=== PATIENT | male | born 1985 | race African-American/Black ===

== ENCOUNTER 2024-12-16 17:33 | Emergency (ER) | payer SELFPAY ==
[2024-12-16 17:35] VITALS: BP 157/76; PULSE 96; RESP 18; TEMP 36.7; O2SAT 96; BMI 24.3
[2024-12-16 17:43] VITALS: PULSE 130; RESP 18; O2SAT 98; BMI 23.0
--- NOTE | 2024-12-16 17:50 | EKG_ITS ---
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
--- NOTE | 2024-12-16 17:54 | PC.NURSE ---
ERIK FROM [employer], [employer]C STAFF AND POLICE AT BEDSIDE. PT STATES THAT SOMEONE SENT HIM A LATE BDAY GIFT, REPORTS HE INHALED ABOUT 1GM OF METH. HAVING CHEST PAIN THAT BEGAN ABOUT 6 HRS AGO. ARRIVED W/AN 18 TO THE RIGHT AC FROM EMS. PT ARRIVES HYPERTENSIVE. PT GIVEN ASPIRIN, NIRTO SL AND NITROPASTE FROM EMS.
--- NOTE | 2024-12-16 18:13 | PD.EDCHEST ---
ED Chest Pain RME/HPI General Chief Complaint: Chest Pain Stated Complaint: CHEST PAIN Time Seen by Provider: 12/16/24 18:14 Arrival date/time: 12/16/24 17:33 RME / HPI RME / HPI narrative: Dr. Carcamo?s Main ED Evaluation: 39yo male accompanied by [employer] brought in from [facility] presents to the ED for a chief complaint of possible methamphetamine ingestion x 1430. Per law enforcement, patient was doing laundry when they noticed he was putting a bag with a crystal-like substance into his mouth. Patient told law enforcement he ingested 0.5g of methamphetamine, so he was brought in for evaluation. He denies any chest pain, shortness of breath, dizziness or any other associated symptoms. Law enforcement note the patient arrived at [facility] today. Related Data Allergies Allergy/AdvReac Type Severity Reaction Status Date / Time No Known Allergies Allergy Verified 12/16/24 19:10 Review of Systems Review of Systems Systems Reviewed: All systems reviewed, normal except as documented Past Medical History Social History SMOKING STATUS: Current every day smoker ED Exam Narrative Physical exam: GENERAL APPEARANCE: alert and oriented x 4, well-developed, well-nourished, no acute distress VITALS: All vitals were reviewed and the pulse ox is 96% on room air, which is normal according to my interpretation. HEENT: Normocephalic, atraumatic; pupils equal, round, reactive to light; EOMI; mucous membranes pink, moist; oropharynx clear NECK: Supple LUNGS: CTABL; no wheezes, no rales, no rhonchi HEART: Regular rate, regular rhythm; normal S1, S2; no murmurs ABDOMEN: non distended; normal BS; soft, no tenderness, no guarding, no rebound; no masses, no organomegaly, no hernia BACK: no CVA tenderness EXTREMITIES: atraumatic; no edema NEUROLOGIC: awake; alert and oriented x4; cranial nerves II-XII grossly intact; no focal sensory or motor deficits PSYCHIATRIC: appropriate mood and affect SKIN: warm, dry, normal color; no rashes Course Quality Measures none Orders Category Date Time Status EKG (ED ONLY) *Do not use* NOW Care 12/16/24 17:50 Completed EKG (ED Only) Stat Exams 12/16/24 17:50 Ordered hydrALAZINE INJ [Apresoline Inj] Med 12/16/24 18:35 Discontinued 10 mg IM X1 ONE hydrALAZINE INJ [Apresoline Inj] Med 12/16/24 19:10 Discontinued 10 mg IV X1 ONE Vital Signs Vital signs: Vital Signs Temperature 98.1 F 12/16/24 17:35 Pulse Rate 96 12/16/24 17:35 Respiratory Rate 18 12/16/24 17:35 Blood Pressure 157/76 H 12/16/24 17:35 Pulse Oximetry (%) 96 12/16/24 17:35 Oxygen Delivery Method Nasal Cannula 12/16/24 17:35 Oxygen Flow Rate 2 12/16/24 17:35 Chest Pain MDM Narrative MDM Narrative:: Scribe Attestation: 12/16/24 - Mitul, Kiana Colón am scribing for and in the presence of Dr. Carcamo. Patient data External records reviewed:: [facility] previous records (Per chart review, patient has no previous ED visits or admissions to this facility.) Clinical information provided by:: patient and law enforcement Social determinants that could affect healthcare access:: housing ([facility] resident) Patient has the following chronic illnesses:: none How is presenting disease/condition affected by chronic disease/condition?: no chronic disease Evaluation data The following diagnostics were reviewed and interpreted by me:: lab results and EKG tracing(s) Lab and/or radiology exams considered but not ordered:: none Interpretation Summary: EKG done at 1756, NSR, rate of 91, normal axis, no ectopy, nonspecific ST abnormalities, no STEMI, according to my interpretation. Medications / Prescriptions Medications or Prescriptions considered but not ordered:: none Medication administrations:: Medication Administration History Discontinued Medications Hydralazine HCl (Hydralazine Inj 20 Mg/Ml Vial) 10 mg IM X1 ONE Stop: 12/16/24 18:36 Last Admin: 12/16/24 19:11 Dose: Not Given Documented By: TM Non-Admin Reason: Cancelled by Provider Hydralazine HCl (Hydralazine Inj 20 Mg/Ml Vial) 10 mg IV X1 ONE Stop: 12/16/24 19:11 Last Admin: 12/16/24 19:18 Dose: 10 mg Documented By: CB see above Consultations Consultation(s) initiated? (list below): No Diagnosis Chest Pain Differential Diagnosis: other (methamphetamine ingestion, cocaine ingestion, other substance ingestion) Most likely diagnosis given after review of the tests above:: see below Admission Indicated Admission indicated?: not indicated Explain why admission is indicated or not indicated:: No criteria for admission. Patient does not have any medical complaints. Admission Request Was there a request for admission?: No Disposition Plan Disposition Plan: Discharge Discharge Attestation Discharge Attestation: The patient and all family members were given an opportunity to ask questions and understood the discharge instructions. Discharge instructions specifically effects, indications for sooner follow up or return to the emergency department, and the expected course of current diagnosis. Patient condition: Stable Discharge Plan Plan Patient Disposition: Skilled Nursing/Court/Law Disposition Comment: Stable for discharge into custody Patient condition on transfer: Stable Prescriptions/Referrals Referrals: [facility] [Outside] - In 1 week Problem List Clinical Impression: Hypertension, Ingestion of substance Patient/Caregiver Discharge Instructions Discharge Activity: activity as tolerated Education Materials: ED High Blood Pressure ... Additional Instructions: Please return to the emergency department if you have any worsening or any further medical problems. Otherwise you should follow-up with your primary care doctor within the next several days. Apparently Subhash ingested some sort of substance. However it has been 4 hours, he has no symptoms other than some hypertension and is in no distress. He is medically cleared for incarceration Print Language: Yemeni Stand Alone Forms: Gertrude Award Info., Patient Portal Info Letter
--- NOTE | 2024-12-16 19:08 | PC.NURSE ---
PROVIDER GAVE VERBAL TO CHANGE HYDRALAZINE TO IV INSTEAD OF IM
[2024-12-16 19:16] VITALS: BP 202/122; PULSE 96; RESP 37; O2SAT 98
[2024-12-16 19:18] VITALS: BP 202/122; PULSE 96
[2024-12-16] MEDS: hydrALAZINE INJ 20 MG/ML VIAL 10 MG IV (19:18)
[2024-12-16 19:53] VITALS: BP 182/99; PULSE 100; RESP 18; TEMP 36.7; O2SAT 98
== END 2024-12-16 19:54 ==
PROVIDERS: Emergency Provider Emergency Medicine
DX: F15.90 Other stimulant use, unspecified, uncomplicated (principal); I10 Essential (primary) hypertension; R07.9 Chest pain, unspecified; R94.31 Abnormal electrocardiogram [ECG] [EKG]; F17.200 Nicotine dependence, unspecified, uncomplicated
CPT/HCPCS: 93005; 99283; J0360